=== PATIENT | female | born 1975 ===

== ENCOUNTER → 2020-07-31 | Outpatient (CLI) | payer OTHER ==
[~2020-07-31] MED LIST: COZAAR25 MG PO; D3 + K2 DOTS 11 EACH PO; HYDROCHLOROTH12.5 MG PO; MULTIPLE VITAM1 EAC2 PO
== END | disposition home or self-care (01) ==
LOC: RX STUDY 09:49
PROVIDERS: ATTEND Colon & Rectal Surgery
DX: N82.3 Fistula of vagina to large intestine (principal)

== ENCOUNTER 2020-10-30 08:30 | Day surgery (SDC) | payer OTHER | END 2020-10-30 20:00 | disposition home or self-care (01) | LOC: CIR.AMB 08:30 | PROVIDERS: ATTEND Colon & Rectal Surgery | DX: N81.6 Rectocele (principal); Z20.822 Contact with and (suspected) exposure to COVID-19 ==

== ENCOUNTER → 2022-11-06 | Outpatient (CLI) | payer OTHER | END | disposition home or self-care (01) | LOC: RX STUDY 09:28 | PROVIDERS: ATTEND Colon & Rectal Surgery | DX: N82.3 Fistula of vagina to large intestine (principal); N81.6 Rectocele ==